=== PATIENT | female | born 1955 | race Caucasian/White ===

== ENCOUNTER 2018-09-20 12:26 | Outpatient (CLI) | payer OTHER | END 2018-09-20 12:27 | disposition home or self-care (01) | LOC: BICMAMMO 12:26 | PROVIDERS: ATTEND Obstetrics & Gynecology | DX: Z12.31 Encounter for screening mammogram for malignant neoplasm of breast (principal) | CPT/HCPCS: 77063; 77067 ==

== ENCOUNTER 2019-09-02 12:59 | Outpatient (CLI) | payer OTHER ==
--- NOTE | 2019-09-02 13:50 | ULT ---
"PRELIMINARY REPORT" ULTRASOUND THYROID STANDARD: History: Thyroid nodules. Comparison: None. Findings: Real-time grayscale and color evaluation of the thyroid was performed. Background echotexture and vascularity is normal. Isthmus measures 3 mm in AP dimension. Right lobe measures 3.6 x 1.7 x 1.3 cm and the left lobe measu res 4.5 x 2.1 x 1.9 cm. In the inferior right lobe of the thyroid is a 1.2 x 1 x 0.7 cm wider than tall solid isoechoic nodul e without microcalcifications with well-defined margins. This is a TIRADS 3: Mildly suspicious nodule. No follow-up or aspiration is required per TIRADS criteria. Adjacent to this more posteriorly is a 0.7 x 0.7 x 0.8 cm wider than tall solid hypoechoic nodule wit h ill-defined margins without echogenic foci. This nodule is TIRADS 4: Moderately suspicious. Given its small size, no aspiration or follow-up is required. In the left lobe of the thyroid are multiple adjacent nodules nearly replacing the parenchyma. The bueno perior pole is a 1.6 x 1.4 x 1.2 cm solid isoechoic nodule which is wider than tall with ill-defined margins without echogenic foci. This is TIRADS 3: Mildly suspicious. Given its size, foll ow-up in 6 months-1 year is recommended. In the inferior pole is a 2.8 x 1.5 x 1.8 cm mixed solid and cystic nodule which is isoechoic, wider than tall, with ill-defined margins. This nodule is TIRAD S 3: Mildly suspicious. Given its size, aspiration is recommended per TIRADS criteria. In the interpolar region is a 1.5 x 1.5 x 1.3 cm solid isoechoic wider than tall nodule with ill-defi nikki margins without echogenic foci. This is TIRADS 3: Mildly suspicious. Given its size, follow-up in 6 months-1 year is recommended. IMPRESSION: Numerous bilateral thyroid nodules for which the dominant left lower thyroid nodule meets criteria fo r aspiration per TIRADS criteria. Transcribed Date/Time: 09/02/2019 2:34 PM
== END 2019-09-02 13:00 | disposition home or self-care (01) ==
LOC: SCSULT 12:59
PROVIDERS: ATTEND Otolaryngology Plastic Surgery within the Head & Neck
DX: E04.2 Nontoxic multinodular goiter (principal)
CPT/HCPCS: 76536

== ENCOUNTER 2019-10-21 07:28 | Outpatient (CLI) | payer OTHER ==
[2019-10-21 08:00] LABS: Estimated GFR-MDRD - POC Greater than 90
--- NOTE | 2019-10-21 09:27 | CT ---
CT ABDOMEN WITH AND WITHOUT IV CONTRAST: HISTORY: A 64-year-old female who has a life screening exam that showed a possible mass on the left kidney. 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 The patient has no complaints. FINDINGS: The lung bases are clear. 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 The liver, pancreas, and adrenal glands are normal. No calcified gallstones are seen. No calculi are seen in the kidneys or the visualized portions of the ureters. No hydroureteronephros is is seen. Postcontrast images demonstrate a 1 cm low-density lesion in the left medial renal karis x. No free air, free fluid, or lymphadenopathy is seen in the abdomen. There is no evidence of aneurysm al dilatation of the abdominal aorta. There are degenerative changes in the spine. IMPRESSION: Findings are suggestive of a 1 cm left renal cyst. POS: [facility]
[2019-10-21] MEDS ORDERED: Iopamidol-370 76% 500 ML 1 ML ONE (14:52)
== END 2019-10-21 07:29 | disposition home or self-care (01) ==
LOC: BICCT 07:28
PROVIDERS: ATTEND Urology
DX: N28.1 Cyst of kidney, acquired (principal)
CPT/HCPCS: 74170; 82565; Q9967